=== PATIENT | male | born 1985 ===

== ENCOUNTER 2019-07-17 11:40 | Emergency (ER) | payer BC ==
--- NOTE | 2019-07-17 12:04 | EDM.PDOC ---
ED HPI GENERAL MEDICAL PROBLEM - General Chief Complaint: Lower Extremity Injury/Pain Stated Complaint: BIG TOE PAIN Time Seen by Provider: 07/17/19 11:46 Source of Information: Reports: Patient History Limitations: Reports: No Limitations - History of Present Illness INITIAL COMMENTS - FREE TEXT/NARRATIVE: HISTORY AND PHYSICAL: History of present illness: Patient is a 34-year-old male who presents to the ED today with concern of right big toe pain over the last 3 to 4 days. Patient denies any trauma or injury to the toe and states he just woke up with it. Patient states initially was little bit red and swollen but this has improved a little bit. Patient denies any associative symptoms or any health history. Patient denies fever, chills, chest pain, shortness of breath, or cough. Denies headache, neck stiff ness, change in vision, syncope, or near syncope. Denies nausea, vomiting, abdominal pain, diarrhea, constipation, or dysuria. Has not noted any blood in urine or stool. Patient has been eating and drinking appropriately. Review of systems: As per history of present illness and below otherwise all systems reviewed and negative. Past medical history: As per history of present illness and as reviewed below otherwise noncontributory. Surgical history: As per history of present illness and as reviewed below otherwise noncontributory. Social history: See social history for further information Family history: As per history of present illness and as reviewed below otherwise noncontributory. Physical exam: General: Patient is alert, oriented, and in no acute distress. Patient sitting comfortably on exam table. HEENT: Atraumatic, normocephalic, pupils equal and reactive bilaterally, negative for conjunctival pallor or scleral icterus, mucous membranes moist, TMs normal bilaterally, throat clear, neck supple, nontender, trachea midline. No drooling or trismus noted. No meningeal signs. No hot potato voice noted. Lungs: Clear to auscultation, breath sounds equal bilaterally, chest nontender. Heart: S1S2, regular rate and rhythm without overt murmur Abdomen: Soft, nondistended, nontender. Negative for masses or hepatosplenomegaly. Negative for costovertebral tenderness. Pelvis: Stable nontender. Genitourinary: Deferred. Rectal: Deferred. Skin: Intact, warm, dry. No lesions or rashes noted. Extremities: Negative for cords or calf pain. Neurovascular unremarkable. Mild edema with mild erythema but no warmth of the first metatarsophalangeal joint of the right foot with mild-moderate pain with ROM of this joint which does resemble possible mild gout. Patient has full range of motion of complete right lower extremity without pain or difficulty. DP/PT pulses intact bilaterally with capillary refill <2 seconds. Neuro: Awake, alert, oriented. Cranial nerves II through XII unremarkable. Cerebellum unremarkable. Motor and sensory unremarkable throughout. Exam nonfocal. Notes: Discussed importance for follow-up with a primary care provider. Voices understanding and is agreeable to plan of care. Denies any further questions or concerns at this time. Diagnostics: CBC, Uric acid, BMP, Foot XR Therapeutics: None Prescription: Indomethacin Impression: Big toe pain, right Plan: 1. Take medication as prescribed. Follow-up with a primary care provider as discussed. Return to the ED as needed and as discussed. Definitive disposition and diagnosis as appropriate pending reevaluation and review of above. right great toe Pain Score (Numeric/FACES): 7 - Related Data Allergies Allergy/AdvReac Type Severity Reaction Status Date / Time No Known Allergies Allergy Verified 07/17/19 11:50 Home Meds: Home Meds Indomethacin 50 mg PO TID 7 Days #21 capsule 07/17/19 [Rx] Past Medical History - Past Health History Medical/Surgical History: Denies Medical/Surgical History - Past Surgical History Musculoskeletal Surgical History: Reports: Arthroscopic Knee Social & Family History - Family History Family Medical History: Noncontributory - Tobacco Use Smoking Status *Q: Current Every Day Smoker Years of Tobacco use: 20 Packs/Tins Daily: 0.5 - Recreational Drug Use Recreational Drug Use: No Review of Systems - Review of Systems Review Of Systems: Comprehensive ROS is negative, except as noted in HPI. ED EXAM, GENERAL - Physical Exam Exam: See Below (see dictation) Course - Vital Signs Last Recorded V/S: Last Vital Signs Temp 98.0 F 07/17/19 11:48 Pulse 85 07/17/19 11:48 Resp 16 07/17/19 11:48 BP 141/59 H 07/17/19 11:48 Pulse Ox 97 07/17/19 11:48 - Orders/Labs/Meds Labs: Laboratory Tests 07/17/19 07/17/19 Range/Units 12:14 12:14 WBC 12.36 H (4.0-11.0) K/uL RBC 5.40 (4.50-5.90) M/uL Hgb 17.0 (13.0-17.0) g/dL Hct 49.3 (38.0-50.0) % MCV 91.3 (80.0-98.0) fL MCH 31.5 (27.0-32.0) pg MCHC 34.5 (31.0-37.0) g/dL RDW Std Deviation 44.8 (28.0-62.0) fl RDW Coeff of Lazarus 14 (11.0-15.0) % Plt Count 340 (150-400) K/uL MPV 9.90 (7.40-12.00) fL Neut % (Auto) 72.5 (48.0-80.0) % Lymph % (Auto) 17.6 (16.0-40.0) % Dare % (Auto) 5.9 (0.0-15.0) % Eos % (Auto) 3.4 (0.0-7.0) % Baso % (Auto) 0.6 (0.0-1.5) % Neut # (Auto) 9.0 H (1.4-5.7) K/uL Lymph # (Auto) 2.2 (0.6-2.4) K/uL Dare # (Auto) 0.7 (0.0-0.8) K/uL Eos # (Auto) 0.4 (0.0-0.7) K/uL Baso # (Auto) 0.1 (0.0-0.1) K/uL Sodium 142 (136-148) mmol/L Potassium 4.3 (3.5-5.1) mmol/L Chloride 105 (98-107) mmol/L Carbon Dioxide 29.7 (21.0-32.0) mmol/L BUN 14 (7.0-18.0) mg/dL Creatinine 0.9 (0.8-1.3) mg/dL Est Cr Clr Drug Dosing 95.93 mL/min Estimated GFR (MDRD) > 60.0 ml/min Glucose 95 (74-106) mg/dL Uric Acid 6.4 (2.6-7.2) mg/dL Calcium 9.4 (8.5-10.1) mg/dL Departure - Departure Time of Disposition: 13:06 Disposition: Home, Self-Care 01 Clinical Impression: Toe pain, right - Discharge Information Prescriptions: Indomethacin 50 mg PO TID 7 Days #21 capsule Referrals: PCP,Unknown [Primary Care Provider] - Forms: ED Department Discharge Additional Instructions: The following information is given to patients seen in the emergency department who are being discharged to home. This information is to outline your options for follow-up care. We provide all patients seen in our emergency department with a follow-up referral. The need for follow-up, as well as the timing and circumstances, are variable depending upon the specifics of your emergency department visit. If you don't have a primary care physician on staff, we will provide you with a referral. We always advise you to contact your personal physician following an emergency department visit to inform them of the circumstance of the visit and for follow-up with them and/or the need for any referrals to a consulting specialist. The emergency department will also refer you to a specialist when appropriate. This referral assures that you have the opportunity for follow-up care with a specialist. All of these measure are taken in an effort to provide you with optimal care, which includes your follow-up. Under all circumstances we always encourage you to contact your private physician who remains a resource for coordinating your care. When calling for follow-up care, please make the office aware that this follow-up is from your recent emergency room visit. If for any reason you are refused follow-up, please contact the [facility] Emergency Department at and asked to speak to the emergency department charge nurse. [facility] [address] [place] [id number] [address] [address] Take medication as prescribed. Follow-up with a primary care provider as discussed. Return to the ED as needed and as discussed. Sepsis Event Note - Evaluation Sepsis Screening Result: No Definite Risk - Focused Exam Vital Signs: Vital Signs Temp Pulse Resp BP Pulse Ox 07/17/19 11:48 98.0 F 85 16 141/59 H 97 Date Exam was Performed: 07/17/19 Time Exam was Performed: 13:06
--- NOTE | 2019-07-17 12:33 | CR ---
Right foot: 2 views of the right foot were obtained. Comparison: No prior right foot exam. Slight bony exostosis is noted off the distal anterior tibia likely relating to old injury. Joint spaces are preserved. No acute fracture or other bony abnormality is appreciated. Impression: 1. Small bony exostosis off the anterior distal tibia as noted above. 2. Two-view right foot exam is otherwise unremarkable. Diagnostic code #2 This report was dictated in [place] Standard Time
[2019-07-17 12:47] LABS: BLOOD UREA NITROGEN,BUN 14 mg/dL (7.0-18.0); CARBON DIOXIDE,CO2 29.7 mmol/L (21.0-32.0); CHLORIDE,CL 105 mmol/L (98-107); GLUCOSE RANDOM 95 mg/dL (74-106); POTASSIUM,K 4.3 mmol/L (3.5-5.1); SODIUM,NA 142 mmol/L (136-148)
== END 2019-07-17 13:17 | disposition home or self-care (01) ==
LOC: MW.ED 11:40
DX: M79.674 Pain in right toe(s) (principal); F17.210 Nicotine dependence, cigarettes, uncomplicated
CPT/HCPCS: 36415; 73620-26-RT; 73620-RT; 80048; 84550; 85025; 99283; 99283-25

== ENCOUNTER 2020-11-07 08:59 | Emergency (ER) | payer BC, OTHER ==
[2020-11-07] MEDS ORDERED: Sodium Chloride 0.9% 1,000 ML IV ONE (09:08)
[2020-11-07] MEDS ORDERED: Sodium Chloride 0.9% 10 ML Syringe FLUSH PRN (09:08)
[2020-11-07] MEDS ORDERED: Sodium Chloride 0.9% 2.5 ML Syringe FLUSH PRN (09:08)
[2020-11-07] MEDS ORDERED: Aspirin 81 MG Tab.Chew PO ONE (09:27)
[2020-11-07] MEDS ORDERED: Alum Hydrox/Mag Hydrox/Simeth 15 ML, Lidocaine 2% 5 ML PO ONE ×2 (09:28)
--- NOTE | 2020-11-07 09:49 | CR ---
Indication: Chest pain Comparison: Single-view chest June 19, 2020 Technique: Single AP view chest Findings: There is hyperinflation and chronic central bronchial thickening. There is no focal consolidation, effusion, or pneumothorax. The cardiac silhouette is mildly prominent. The bony thorax is grossly intact. Impression: Mild central bronchial thickening without evidence of dense consolidation. Dictated by Leonardo Ames MD @ 11/07/2020 9:47:[address] Leonardo Ames @ Nov 07 2020 9:47AM
[2020-11-07 09:54] LABS: BLOOD UREA NITROGEN,BUN 11 mg/dL (7.0-18.0); CARBON DIOXIDE,CO2 22.7 mmol/L (21.0-32.0); CHLORIDE,CL 103 mmol/L (98-107); GLUCOSE RANDOM 117 mg/dL (74-106); SODIUM,NA 137 mmol/L (136-148)
[2020-11-07] MEDS ORDERED: Ketorolac 30 MG/ML SDV IVPUSH ONE (10:27)
--- NOTE | 2020-11-07 11:29 | EDM.PDOC ---
ED HPI GENERAL MEDICAL PROBLEM - General Chief Complaint: Chest Pain Stated Complaint: CHEST PAIN Time Seen by Provider: 11/07/20 09:17 - History of Present Illness INITIAL COMMENTS - FREE TEXT/NARRATIVE: HISTORY AND PHYSICAL: History of present illness: This is a 35-year-old gentleman with no significant past medical history who presents ER today complaining of midepigastric down discomfort as well as left upper quadrant left flank and left lower quadrant abdominal discomfort that started earlier today. Patient has any recent fevers, shakes, chills, vomiting, diarrhea, dysuria, frequency, urgency, hematuria. Patient reports has been tolerating p.o. solids and liquids well. Patient denies any chest pressure or discomfort. Patient denies any shortness of breath or diaphoresis. Patient denies any pain rating down his arms jaw or back. Patient denies any hypertension, diabetes, hypercholesterolemia, known family history(patient reports adopted), patient does smoke. Patient denies any drug use. Patient reports that he does drink a significant amount of alcohol usually he drinks a significant mount of fireball's daily. He reports last night he switched from his fireball to coconut rum and orange crush and therefore feels that he actually had less alcohol than usual yesterday. Patient reports normal p.o. solids. Patient denies any melena or bright red blood per rectum. Review of systems: As per history of present illness and below otherwise all systems reviewed and negative. Past medical history: As per history of present illness and as reviewed below otherwise noncontributory. Surgical history: As per history of present illness and as reviewed below otherwise noncontributory. Social history: No reported history of drug abuse. Family history: As per history of present illness and as reviewed below otherwise noncontributory. Physical exam: This patient was seen and evaluated during the 2019 SARS-CoV-2 novel coronavirus pandemic period. Community viral transmission is ongoing at time of this encounter and the emergency department is operating under pandemic response procedures. Constitutional: Patient is oriented to person, place, and time. Appears well- developed and well-nourished. No distress. HEENT: Moist mucous membranes Head: Normocephalic and atraumatic Eyes: Right eye exhibits no discharge. Left eye exhibits no discharge. No scleral icterus Neck: Normal range of motion. No tracheal deviation present. Cardiovascular: Normal rate and regular rhythm. Pulmonary: Effort normal, no respiratory distress. Abd: Soft, nondistended, no rebound/guarding, no psoas or obturator signs, no tenderness at Mcberney's point, no Danielle's sign. Pt does not present with an exam that would be consistent with an acute surgical abdomen at this time, tenderness to palpation midepigastric, left flank and left lower quadrants. Patient reports that the pain is colicky in nature. Musculoskeletal: Normal range of motion Neurologic: Alert and oriented to person, place and time. Skin: [place], warm and dry. Psychiatric: Normal mood and affect. Behavior is normal. Judgment and thought content normal. Nursing note and vital signs have been reviewed Diagnostics: CBC, CMP, lipase within normal limits. Troponin and D-dimer within normal limits. Patient CT scan of his abdomen pelvis reveals no acute pathology and no evidence of hydroureter, hydronephrosis, kidney stones. EKG: As interpreted by ER physician: Shirlene: Nonspecific ST-T wave abnormalities Normal axis No evidence of ST elevation [place] Normal sinus rhythm heart rate of 65 Chest Xray: Normal cardiac silhouette No infiltrates or effusions identified. No PTX No evidence of acute bony fracture. As interpreted by ER MD: Shirlene [employer]rapeutics: GI cocktail, Toradol given after patient reporting pain is in the left flank and is colicky. Assessment and plan: 35-year-old gentleman who presents ER today with midepigastric left upper quadrant and left flank pain rating to his left lower quadrant x1 day. Patient presentation is extremely low risk for cardiac etiology. Patient's heart score is 1. Patient be discharged home with treatment for possible gastritis as the etiology of his discomfort. Patient be started on Prilosec and instructed to follow-up with primary care for further evaluation. Heart Score: History: 0 (2, Highly Suspicious; 1, Moderate Suspicious; 0: Slightly Suspicious) EK (2, Significant ST depression; 1: Non specific repolarization disturbance; 0, Normal) Age: 0 (2, = 65; 1: 45-65; 0, =45) Risk factors: 1 (2, =3 risk factors or history of atherosclerotic disease; 1, 1-2 risk factors; 0, no risk factors) Risk Factors include hypercholesterolemia, HTN, DM, smoking, family history, obesity Troponin: 0 (2, (=3x normal limit; 1, 1-3 x normal limit; 0 = normal limit) Total Heart Score: 1 Management Scores 0-3: 0.9-1.7% risk of adverse cardiac event. In the HEART Score study, these patients were discharged (0.99% in the retrospective study, 1.7% in the prospective study) Scores 4-6: 12-16.6% risk of adverse cardiac event. In the HEART Score study, these patients were admitted to the hospital. (11.6% retrospective, 16.6% prospective) Scores =7: 50-65% risk of adverse cardiac event. In the HEART Score study, these patients were candidates for early invasive measures. (65.2% retrospective, 50.1% prospective) Definitive disposition and diagnosis as appropriate pending reevaluation and review of above. Chest Pain Pain Score (Numeric/FACES): 3 - Related Data Allergies Allergy/AdvReac Type Severity Reaction Status Date / Time No Known Allergies Allergy Verified 11/07/20 09:07 Home Meds: Home Meds Omeprazole Magnesium [Prilosec Otc] 20 mg PO DAILY #30 tablet. 11/07/20 [Rx] Past Medical History - Past Health History Medical/Surgical History: Denies Medical/Surgical History - Infectious Disease History Infectious Disease History: Reports: None - Past Surgical History Musculoskeletal Surgical History: Reports: Arthroscopic Knee Social & Family History - Family History Family Medical History: No Pertinent Family History - Tobacco Use Tobacco Use Status *Q: Never Tobacco User - Caffeine Use Caffeine Use: Reports: None - Recreational Drug Use Recreational Drug Use: No ED ROS GENERAL - Review of Systems Review Of Systems: See Below ED EXAM, GENERAL - Physical Exam Exam: See Below Course - Vital Signs Last Recorded V/S: Last Vital Signs Temp 98.6 F 11/07/20 09:10 Pulse 72 11/07/20 09:10 Resp 17 11/07/20 09:10 BP 121/70 11/07/20 09:10 Pulse Ox 98 11/07/20 09:10 - Orders/Labs/Meds Orders: Active Orders 24 hr Category Date Time Status EKG Documentation Completion [RC] AM Care 11/07/20 09:08 Active Abdomen Pelvis wo Cont [CT] Stat Exams 11/07/20 10:27 Taken UA W/TASHA RFLX IF INDICATED [URIN] Stat Lab 11/07/20 11:12 Received Sodium Chloride 0.9% [Saline Flush] Med 11/07/20 09:08 Active 10 ml FLUSH ASDIRECTED PRN Sodium Chloride 0.9% [Saline Flush] Med 11/07/20 09:08 Active 2.5 ml FLUSH ASDIRECTED PRN Saline Lock Insert [OM.PC] Stat Oth 11/07/20 09:08 Ordered Medication Orders Sodium Chloride (Sodium Chloride 0.9% 10 Ml Syringe) 10 ml FLUSH ASDIRECTED PRN PRN Reason: Keep Vein Open Last Admin: 11/07/20 09:17 Dose: 10 ml Documented by: LG Sodium Chloride (Sodium Chloride 0.9% 2.5 Ml Syringe) 2.5 ml FLUSH ASDIRECTED PRN PRN Reason: Keep Vein Open Last Admin: 11/07/20 09:16 Dose: 2.5 ml Documented by: LG Labs: Laboratory Tests 11/07/20 11/07/20 11/07/20 Range/Units 09:05 09:05 09:05 WBC 7.59 (4.0-11.0) K/uL RBC 5.31 (4.50-5.90) M/uL Hgb 17.2 H (13.0-17.0) g/dL Hct 48.9 (38.0-50.0) % MCV 92.1 (80.0-98.0) fL MCH 32.4 H (27.0-32.0) pg MCHC 35.2 (31.0-37.0) g/dL RDW Std Deviation 44.8 (28.0-62.0) fl RDW Coeff of Lazarus 13 (11.0-15.0) % Plt Count 294 (150-400) K/uL MPV 10.40 (7.40-12.00) fL Neut % (Auto) 60.9 (48.0-80.0) % Lymph % (Auto) 20.8 (16.0-40.0) % [place] % (Auto) 10.7 (0.0-15.0) % Eos % (Auto) 6.3 (0.0-7.0) % Baso % (Auto) 1.3 (0.0-1.5) % Neut # (Auto) 4.6 (1.4-5.7) K/uL Lymph # (Auto) 1.6 (0.6-2.4) K/uL [place]anan # (Auto) 0.8 (0.0-0.8) K/uL Eos # (Auto) 0.5 (0.0-0.7) K/uL Baso # (Auto) 0.1 (0.0-0.1) K/uL Nucleated RBC % 0.0 /100WBC Nucleated RBCs # 0 K/uL D-Dimer, Quantitative 0.19 (0.0-0.50) mg/L FEU Sodium 137 (136-148) mmol/L Potassium 4.0 (3.5-5.1) mmol/L Chloride 103 (98-107) mmol/L Carbon Dioxide 22.7 (21.0-32.0) mmol/L BUN 11 (7.0-18.0) mg/dL Creatinine 1.1 (0.8-1.3) mg/dL Est Cr Clr Drug Dosing 77.74 mL/min Estimated GFR (MDRD) > 60.0 ml/min Glucose 117 H (74-106) mg/dL Calcium 8.2 L (8.5-10.1) mg/dL Total Bilirubin 0.3 (0.2-1.0) mg/dL AST 26 (15-37) IU/L ALT 64 H (14-63) IU/L Alkaline Phosphatase 75 (46-116) U/L Troponin I < 0.050 (0.000-0.056) ng/mL B-Natriuretic Peptide (<100) PG/ML Total Protein 8.0 (6.4-8.2) g/dL Albumin 3.8 (3.4-5.0) g/dL Globulin 4.2 H (2.6-4.0) g/dL Albumin/Globulin Ratio 0.9 (0.9-1.6) Lipase (73-393) U/L 11/07/20 11/07/20 Range/Units 09:05 09:05 WBC (4.0-11.0) K/uL RBC (4.50-5.90) M/uL Hgb (13.0-17.0) g/dL Hct (38.0-50.0) % MCV (80.0-98.0) fL MCH (27.0-32.0) pg MCHC (31.0-37.0) g/dL RDW Std Deviation (28.0-62.0) fl RDW Coeff of Lazarus (11.0-15.0) % Plt Count (150-400) K/uL MPV (7.40-12.00) fL Neut % (Auto) (48.0-80.0) % Lymph % (Auto) (16.0-40.0) % [place]anan % (Auto) (0.0-15.0) % Eos % (Auto) (0.0-7.0) % Baso % (Auto) (0.0-1.5) % Neut # (Auto) (1.4-5.7) K/uL Lymph # (Auto) (0.6-2.4) K/uL Buchanan # (Auto) (0.0-0.8) K/uL Eos # (Auto) (0.0-0.7) K/uL Baso # (Auto) (0.0-0.1) K/uL Nucleated RBC % /100WBC Nucleated RBCs # K/uL D-Dimer, Quantitative (0.0-0.50) mg/L FEU Sodium (136-148) mmol/L Potassium (3.5-5.1) mmol/L Chloride (98-107) mmol/L Carbon Dioxide (21.0-32.0) mmol/L BUN (7.0-18.0) mg/dL Creatinine (0.8-1.3) mg/dL Est Cr Clr Drug Dosing mL/min Estimated GFR (MDRD) ml/min Glucose (74-106) mg/dL Calcium (8.5-10.1) mg/dL Total Bilirubin (0.2-1.0) mg/dL AST (15-37) IU/L ALT (14-63) IU/L Alkaline Phosphatase (46-116) U/L Troponin I (0.000-0.056) ng/mL B-Natriuretic Peptide 15 (<100) PG/ML Total Protein (6.4-8.2) g/dL Albumin (3.4-5.0) g/dL Globulin (2.6-4.0) g/dL Albumin/Globulin Ratio (0.9-1.6) Lipase 147 (73-393) U/L Meds: Medications Generic Name Dose Route Start Last Admin Trade Name Lynnette PRN Reason Stop Dose Admin Sodium Chloride 10 ml 11/07/20 09:08 11/07/20 09:17 Sodium Chloride 0.9% 10 Ml Syringe FLUSH 10 ml ASDIRECTED PRN Administration Keep Vein Open Sodium Chloride 2.5 ml 11/07/20 09:08 11/07/20 09:16 Sodium Chloride 0.9% 2.5 Ml Syringe FLUSH 2.5 ml ASDIRECTED PRN Administration Keep Vein Open Discontinued Medications Generic Name Dose Route Start Last Admin Trade Name Lynnette PRN Reason Stop Dose Admin Aspirin 324 mg 11/07/20 09:27 11/07/20 09:37 Aspirin 81 Mg Tab.Chew PO 11/07/20 09:28 324 mg ONETIME ONE Administration Al Hydroxide/Mg Hydroxide 15 0 ml 11/07/20 09:28 11/07/20 09:37 ml/ Lidocaine HCl 5 ml PO 11/07/20 09:29 5 each ONETIME ONE Administration Sodium Chloride 1,000 mls @ 999 mls/hr 11/07/20 09:08 11/07/20 09:16 Normal Saline IV 11/07/20 10:08 999 mls/hr .Bolus ONE Administration Ketorolac Tromethamine 30 mg 11/07/20 10:27 11/07/20 10:41 Ketorolac 30 Mg/Ml Sdv IVPUSH 11/07/20 10:28 30 mg ONETIME ONE Administration Departure - Departure Time of Disposition: 11:27 Disposition: Home, Self-Care 01 Condition: Good Clinical Impression: Abdominal pain Qualifiers: Abdominal location: left upper quadrant Qualified Code(s): R10.12 - Left upper quadrant pain Alcoholic gastritis Qualifiers: Chronicity: unspecified Gastritis bleeding: without bleeding Qualified Code(s): K29.20 - Alcoholic gastritis without bleeding - Discharge Information Instructions: Abdominal Pain, Adult, [id number], Gastritis, Adult Referrals: PCP,None [Primary Care Provider] - Additional Instructions: You were seen and evaluated in the ER today secondary to abdominal pain and discomfort. The work-up in the emergency department reveals normal blood tests including a normal heart enzyme, normal blood tests to evaluate for blood clots in your lungs, normal hemoglobin and liver function, chest x-ray is normal, EKG is normal. You had a CT scan of your abdomen pelvis to evaluate for possible kidney stones and other abnormalities. The CT scan of your abdomen pelvis was also normal. Your pain is most likely secondary to inflammation of your stomach which alcohol is likely a major contributor. You will be started on Prilosec 20 mg daily to help treat the inflammation in your stomach. Please make an appointment to follow-up with your family doctor in the next week. The following information is given to patients seen in the emergency department who are being discharged to home. This information is to outline your options for follow-up care. We provide all patients seen in our emergency department with a follow-up referral. The need for follow-up, as well as the timing and circumstances, are variable depending upon the specifics of your emergency department visit. If you don't have a primary care physician on staff, we will provide you with a referral. We always advise you to contact your personal physician following an emergency department visit to inform them of the circumstance of the visit and for follow-up with them and/or the need for any referrals to a consulting specialist. The emergency department will also refer you to a specialist when appropriate. This referral assures that you have the opportunity for follow-up care with a specialist. All of these measure are taken in an effort to provide you with optimal care, which includes your follow-up. Under all circumstances we always encourage you to contact your private physician who remains a resource for coordinating your care. When calling for follow-up care, please make the office aware that this follow-up is from your recent emergency room visit. If for any reason you are refused follow-up, please contact the [facility] Emergency Department at and asked to speak to the emergency department charge nurse. [facility] [address] [place] [address] [id number] [address] [address] Sepsis Event Note (ED) - Evaluation Sepsis Screening Result: No Definite Risk - Focused Exam Vital Signs: Vital Signs Temp Pulse Resp BP Pulse Ox 11/07/20 09:10 98.6 F 72 17 121/70 98 - My Orders Last 24 Hours: My Active Orders 11/07/20 09:08 EKG Documentation Completion [RC] AM Sodium Chloride 0.9% [Saline Flush] 10 ml FLUSH ASDIRECTED PRN Sodium Chloride 0.9% [Saline Flush] 2.5 ml FLUSH ASDIRECTED PRN Saline Lock Insert [OM.PC] Stat 11/07/20 10:27 Abdomen Pelvis wo Cont [CT] Stat 11/07/20 11:12 UA W/TASHA RFLX IF INDICATED [URIN] Stat - Assessment/Plan Last 24 Hours: My Active Orders 11/07/20 09:08 EKG Documentation Completion [RC] AM Sodium Chloride 0.9% [Saline Flush] 10 ml FLUSH ASDIRECTED PRN Sodium Chloride 0.9% [Saline Flush] 2.5 ml FLUSH ASDIRECTED PRN Saline Lock Insert [OM.PC] Stat 11/07/20 10:27 Abdomen Pelvis wo Cont [CT] Stat 11/07/20 11:12 UA W/TASHA RFLX IF INDICATED [URIN] Stat
--- NOTE | 2020-11-07 11:36 | CT ---
Indication: Left flank pain Technique: Volumetric multidetector CT images of the abdomen and pelvis were without the administration of intravenous contrast. Comparison: None available. Findings: There is minimal left basilar atelectasis versus scar. The lung bases are clear. The liver is normal in attenuation without intrahepatic biliary ductal dilatation. The gallbladder is unremarkable without evidence of radiopaque calculus. There is no significant common biliary ductal dilatation or abrupt cut off. The spleen is normal in attenuation and size. The stomach and duodenum are grossly unremarkable. The pancreas is normal in attenuation without significant atrophy. The adrenal glands are unremarkable. There is no evidence of radiopaque calculus or hydronephrosis. There is moderate stool seen throughout the colon with minimal colonic diverticulosis without evidence of diverticulitis. The appendix is unremarkable. There is no significant mesenteric, retroperitoneal, or pelvic sidewall lymph nodes. The aorta is nonaneurysmal. There is no significant atherosclerotic disease appreciated. The solid pelvic viscera are grossly unremarkable. There is no free fluid or free air. The anterior abdominal wall is intact without significant hernias. The lumbar vertebral body heights are grossly maintained with minimal endplate Schmorl`s defect of the superior L1 endplate. There is no significant spondylolisthesis or displaced fracture. Impression: No evidence of radiopaque calculus or obstructive uropathy. Moderate stool seen throughout the colon. Otherwise no acute intra-abdominal abnormality is appreciated. Please note that all CT scans at this facility use dose modulation, iterative reconstruction, and/or weight-based dosing when appropriate to reduce radiation dose to as low as reasonably achievable. Dictated by Leonardo Ames MD @ 11/07/2020 11:35:[address] Leonardo Ames @ Nov 07 2020 11:35AM
== END 2020-11-07 11:51 | disposition home or self-care (01) ==
LOC: MW.ED 08:59
DX: K29.20 Alcoholic gastritis without bleeding (principal); Z79.899 Other long term (current) drug therapy
CPT/HCPCS: 36415; 71045; 74176; 80053; 81003; 83690; 83880; 84484; 85025; 85379; 93005; 96374; 99285; A9270; J1885; J7030; 93010; 99283

== ENCOUNTER 2024-07-21 23:01 | Emergency (ER) | payer SELFPAY | END 2024-07-21 23:30 | LOC: MW.ED 23:01 | DX: F10.129 Alcohol abuse with intoxication, unspecified (principal) | CPT/HCPCS: 99283 ==